=== PATIENT | female | born 1960 | race Caucasian/White ===

== ENCOUNTER 2020-02-26 11:11 | Outpatient (CLI) | payer BC ==
--- NOTE | 2020-02-26 11:27 | ULT ---
THYROID ULTRASOUND INDICATION: Diagnosis code E04.2. TECHNIQUE: Grayscale and color Doppler images were obtained of the thyroid gland. COMPARISON: None FINDINGS: Right thyroid lobe: The right thyroid lobe measures 3.2 x 1.8 x 1.1 cm. There is a mixed solid and cy stic nodule involving the inferior pole of the right thyroid gland measuring 0.7 x 0.6 x 0.5 cm. The lesion is well-circumscribed and wider than tall. No calcifications are associated with the lesio n. Thyroid isthmus: The thyroid isthmus measures 0.2 cm. Left thyroid lobe: The left thyroid lobe measures 3.0 x 1.5 x 1 cm. IMPRESSION: 1. Single mixed cystic and solid thyroid nodule within the lower pole right thyroid gland is consiste nt with a TIRADS 2 lesion. No ultrasound follow-up is recommended. 2. No suspicious thyroid nodule seen within the thyroid isthmus or left thyroid lobe.
== END 2020-02-26 11:12 | disposition home or self-care (01) ==
LOC: BICULT 11:11
PROVIDERS: ATTEND Family Medicine
DX: E04.2 Nontoxic multinodular goiter (principal)
CPT/HCPCS: 76536

== ENCOUNTER 2023-06-24 13:39 | Outpatient (CLI) | payer BC | END 2023-06-24 13:40 | disposition home or self-care (01) | LOC: BICMAMMO 13:39 | PROVIDERS: ATTEND Family Medicine | DX: Z12.31 Encounter for screening mammogram for malignant neoplasm of breast (principal) | CPT/HCPCS: 77063; 77067 ==